=== PATIENT | male | born 1955 | race Caucasian/White ===

== ENCOUNTER → 2023-06-14 15:23 | Outpatient (REF) | payer BC, SELFPAY | LOC: HWRAD 15:23 | PROVIDERS: ATTENDING PHYSICIAN Internal Medicine Critical Care Medicine; FAMILY PHYSICIAN Family Medicine | DX: R06.02 Shortness of breath (principal) | CPT/HCPCS: 71046 ==

== ENCOUNTER → 2023-07-18 09:06 | Outpatient (REF) | payer OTHER, SELFPAY | LOC: HWRCS 09:06 | PROVIDERS: ATTENDING PHYSICIAN Internal Medicine Critical Care Medicine; FAMILY PHYSICIAN Family Medicine | DX: R06.02 Shortness of breath (principal) | CPT/HCPCS: 93306 ==

== ENCOUNTER → 2023-08-03 09:22 | Outpatient (REF) | payer OTHER, SELFPAY | LOC: HWRAD 09:22 | PROVIDERS: ATTENDING PHYSICIAN Internal Medicine Critical Care Medicine; FAMILY PHYSICIAN Family Medicine | DX: R09.02 Hypoxemia (principal) | CPT/HCPCS: 71275; Q9967 ==

== ENCOUNTER 2023-09-04 06:13 | Day surgery (SDC) | payer OTHER, SELFPAY ==
[2023-09-04 09:54] LABS: Glucose - Point of Care 141 mg/dl (70-99)
[2023-09-04 10:00] VITALS: BP 197/93
[2023-09-04 10:10] VITALS: BMI 39.0
[2023-09-04 11:09] VITALS: BP 158/87
[2023-09-04 11:15] VITALS: BP 171/85
[2023-09-04 11:30] VITALS: BP 182/84
== END 2023-09-04 11:45 | disposition home or self-care (01) ==
LOC: SDS 06:13
PROVIDERS: ATTENDING PHYSICIAN Specialist
DX: Z12.11 Encounter for screening for malignant neoplasm of colon (principal); D12.0 Benign neoplasm of cecum; D12.3 Benign neoplasm of transverse colon; Z86.010 Personal history of colon polyps
CPT/HCPCS: 45385; 88305; 82962

== ENCOUNTER → 2023-11-06 15:27 | Outpatient (REF) | payer OTHER, SELFPAY | LOC: HWRAD 15:27 | PROVIDERS: ATTENDING PHYSICIAN Internal Medicine Critical Care Medicine; FAMILY PHYSICIAN Family Medicine | DX: R91.1 Solitary pulmonary nodule (principal) | CPT/HCPCS: 71250 ==

== ENCOUNTER 2023-11-10 11:14 | Emergency (ER) | payer OTHER, SELFPAY ==
[2023-11-10 11:16] VITALS: BP 181/81
[2023-11-10 11:44] VITALS: BMI 40.6
[2023-11-10 11:46] VITALS: BP 141/77
[2023-11-10 12:00] VITALS: BP 146/72
[2023-11-10 12:28] LABS: % Basophils 0.5 % (0-2); % Eosinophils 4.2 % (0-6); % Immature Granulocytes 0.5 % (0-0.5); % Lymphocytes 20.6 % (20.5-51.1); % Monocytes 7.5 % (1.7-9.3); % Neutrophils 66.7 % (42.2-75.2); Absolute Basophils 0.1 10^3/uL (0-0.2); Absolute Eosinophils 0.5 10^3/uL (0-0.7); Absolute Immature Granulocytes 0.1 10^3/uL (0-0.05); Absolute Lymphocytes 2.6 10^3/uL (1.2-3.4); Absolute Neutrophils 8.5 10^3/uL (1.4-6.5); Hematocrit 41.3 % (39.0-52.0); Hemoglobin 14.7 g/dL (13.0-18.0); Mean Corp Hgb Conc. 35.6 g/dL (33.0-37.0); Mean Corpuscular Hgb 29.6 pg (27.0-31.0); Mean Corpuscular Volume 83.3 fL (80.0-94.0); Mean Platelet Volume 10.1 fL (7.4-10.4); Nucleated Red Blood Cells % 0 % (-); Platelet Count 277 10^3/uL (130-400); Red Blood Cell Count 4.96 10^6/uL (4.70-6.10); Red Cell Dist. Width 13.8 % (11.5-14.5); White Blood Cell Count 12.7 10^3/uL (4.8-10.8)
[2023-11-10 12:43] LABS: ALT (SGPT) 21 U/L (0-50); AST (SGOT) 27 U/L (17-59); Albumin 4.5 g/dl (3.5-5.0); Alkaline Phosphatase 66 U/L (38-126); Blood Urea Nitrogen 20 mg/dl (9-20); Calcium 9.8 mg/dl (8.4-10.2); Carbon Dioxide 36 mmol/L (22-30); Chloride 92 mmol/L (98-107); Estimated Creatinine Clearance 112 ml/min; Glucose 146 mg/dl (70-99); Potassium 3.9 mmol/L (3.5-5.1); Sodium 138 mmol/L (135-145); Total Bilirubin 1.1 mg/dl (0.2-1.3); Total Protein 7.4 g/dl (6.3-8.2); eGFR > 60.00
[2023-11-10 12:46] LABS: NT-proBNP 315 pg/ml
[2023-11-10 13:10] VITALS: BP 159/78
[2023-11-10 14:00] VITALS: BP 161/74
[2023-11-10] MEDS: ELIQUIS 10 MG PO (14:42)
[2023-11-10 15:00] VITALS: BP 164/99
--- NOTE | 2023-11-10 15:09 | ED.GENMED ---
History of Present Illness
General
Chief Complaint: Swelling
Source: patient
Exam Limitations: none
Time Seen by Provider: 11/10/23 11:38
History of Present Illness
History of Present Illness:
68-year-old male [id number] diabetic presents with increased swelling to the left leg. Seen by the family doctor and sent in for evaluation for DVT. He also has a blister to the dorsal aspect of his left second toe which the family
doctor started him on Keflex. He has had 4 doses of Keflex since yesterday. No fevers chest pain or shortness of breath. No recent travel or surgery. No injury. He is typically sedentary male and occasionally requires oxygen at rest
Past History
Past History
ED Past Medical History: HTN and Hypercholesterolemia
ED Past Surgical History: None
Social History
Personal:
Living: with family
Employment: Employed
Phy Exam
Physical Exam
Physical Exam:
General: Well-appearing nontoxic male no acute respiratory distress
HEENT: Normocephalic atraumatic
Heart: Regular rate and rhythm no murmurs lungs: Clear no wheeze
Extremities: Pitting edema bilateral lower extremities left greater than the right.
No calf tenderness 2+ dorsalis pedis pulse bilateral feet
Scores
Heart Failure Risk
Heart Failure Risk Score: Not Applicable
Course
Orders/Labs/Results
Orders:
Orders
11/10/23 11:57
CR Foot - Left Min 3 Views Urgent
Comment:
Reason For Exam: pain, swelling
Venous Doppler Lwr Ext Left [US Periph Venous LOWER Ext LT] Urgent
Comment:
Reason For Exam: swelling
11/10/23 12:17
Complete Blood Count/With Diff Urgent
Comprehensive Metabolic Panel Urgent
NT-proBNP Urgent
11/10/23 14:38
Apixaban [Eliquis] 10 mg PO NOW STA
Abnormal Lab Results
11/10/23
12:17
WBC 12.7 H 10^3/uL
(4.8-10.8)
Abs Immat Gran (auto) 0.1 H 10^3/uL
(0-0.05)
Absolute Neuts (auto) 8.5 H 10^3/uL
(1.4-6.5)
Absolute Monos (auto) 1.0 H 10^3/uL
(0.1-0.6)
Chloride 92 L mmol/L
(98-107)
Carbon Dioxide 36 H mmol/L
(22-30)
Glucose 146 H mg/dl
(70-99)
11/10/23 12:17
11/10/23 12:17
Vital Signs
Initial and Last Documented VS:
Initial Vital Signs
Temp Pulse Resp BP Pulse Ox
98.0 F 52 18 181/81 92
11/10/23 11:16 11/10/23 11:16 11/10/23 11:16 11/10/23 11:16 11/10/23 11:16
Last Documented Vital Signs
Temp Pulse Resp BP Pulse Ox
98.0 F 52 18 161/74 91
11/10/23 11:16 11/10/23 11:16 11/10/23 11:16 11/10/23 14:00 11/10/23 14:00
MDM/Problems Addressed
Differential Diagnosis Includes:
Left calf swelling. Consider DVT versus cellulitis versus increased edema. Will do workup including BNP. BNP was reviewed and is within normal limits. Ultrasound demonstrates short segment of the peroneal vein with mild thrombus. Question
chronicity. Patient has never been diagnosed with DVT. Ultrasound of his leg. Due to the unknown chronicity, will initiate anticoagulation in the event this is a acute thrombus. Patient does have a blister on the left second toe with mild
surrounding erythema. X-rays were ordered which are negative for osteomyelitis. Will continue Keflex. Return precautions were given. He was started on Eliquis
*Critical Care Note
Total Time (30-74mins, 75-104mins- exclusive of procedures): Not Applicable
ED Attending Note
-
Portions of this chart may have been created with voice recognition software.� Occasional wrong word or��sound alike� substitutions may have occurred due to the inherent limitations of voice recognition software.
Discharge Plan
Departure
Patient Disposition: Home (Routine Discharge)
Date of Disposition: 11/10/23
Time of Disposition: 15:12
Patient with high blood pressure during this ER visit?: No
Discharge Problem:
DVT, Cellulitis
Instructions: Deep vein thrombosis - Discharge instructions
Prescriptions:
New
Eliquis 5 mg tablet
5 mg PO BID Qty: 60 0RF
Rx Instructions:
Take 10mg twice a day for one week then decrease to 5mg twice a day.
No Action
metoprolol tartrate [Lopressor] 100 MG tablet
100 mg PO BID
aspirin 81 MG tablet,delayed release (DR/EC)
81 mg PO DAILY
losartan [Cozaar] 100 MG tablet
100 mg PO DAILY
pravastatin 80 mg Tablet
80 mg PO DAILY
metformin 750 mg Tablet Extended Release 24 Hr
750 mg PO DAILY
furosemide 80 mg Tablet
80 mg PO DAILY
escitalopram oxalate 10 mg Tablet
10 mg PO DAILY
Referrals:
Severo Gonzalez MD [Family Provider] -
Activity Restrictions/Additional Instructions:
Take blood thinner as directed. Continue antibiotic. Please return if increased swelling redness pain or fever.
Interventions
Interventions:
*Risk Screen - Suicide Last Done: 11/10/23 11:16
*General Assessment Last Done: 11/10/23 11:16
*Neglect/Abuse Screening Last Done: 11/10/23 11:16
ED- Fall Risk Assessment Last Done: 11/10/23 11:47
ED- Cardiac Assessment Last Done: 11/10/23 11:47
ED- Pulmonary Assessment Last Done: 11/10/23 11:47
ED-Skin Assessment Last Done: 11/10/23 11:47
Discharge Date and Time
Print Language: BELIZEAN
== END 2023-11-10 15:33 | disposition home or self-care (01) ==
LOC: EMR 11:14
PROVIDERS: Physician Assistant; EMERGENCY PHYSICIAN Emergency Medicine; FAMILY PHYSICIAN Family Medicine
DX: I82.402 Acute embolism and thrombosis of unspecified deep veins of left lower extremity (principal); L03.116 Cellulitis of left lower limb; R22.42 Localized swelling, mass and lump, left lower limb; E11.9 Type 2 diabetes mellitus without complications; E78.00 Pure hypercholesterolemia, unspecified; I10 Essential (primary) hypertension; Z79.01 Long term (current) use of anticoagulants
CPT/HCPCS: 99284; 73630; 80053; 83880; 85025; 93971

== ENCOUNTER → 2024-05-20 15:09 | Outpatient (REF) | payer OTHER, SELFPAY | LOC: HWRAD 15:09 | PROVIDERS: ATTENDING PHYSICIAN Internal Medicine Critical Care Medicine; FAMILY PHYSICIAN Family Medicine | DX: Z86.718 Personal history of other venous thrombosis and embolism (principal) | CPT/HCPCS: 93970 ==

== ENCOUNTER → 2024-05-29 12:52 | Outpatient (REF) | payer OTHER, SELFPAY | LOC: HWRCS 12:52 | PROVIDERS: ATTENDING PHYSICIAN Internal Medicine Critical Care Medicine; FAMILY PHYSICIAN Family Medicine | DX: R06.02 Shortness of breath (principal) | CPT/HCPCS: 93306 ==

== ENCOUNTER → 2024-12-10 14:15 | Outpatient (REF) | payer OTHER, SELFPAY | LOC: RAD 14:15 | PROVIDERS: FAMILY PHYSICIAN Family Medicine | DX: L97.529 Non-pressure chronic ulcer of other part of left foot with unspecified severity (principal) | CPT/HCPCS: 93922 ==

== ENCOUNTER → 2025-02-27 12:58 | Outpatient (REF) | payer OTHER, SELFPAY | LOC: HWRAD 12:58 | PROVIDERS: ATTENDING PHYSICIAN Internal Medicine Critical Care Medicine; FAMILY PHYSICIAN Family Medicine | DX: R91.1 Solitary pulmonary nodule (principal) | CPT/HCPCS: 71250 ==